=== PATIENT | male | born 1970 | race Two or more races ===

== ENCOUNTER 2018-01-19 09:24 | Emergency (ER) | payer MEDICAID ==
[2018-01-19 10:47] LABS: APPEARANCE CLEAR (CLEAR); BILIRUBIN NEGATIVE (NEGATIVE); COLOR YELLOW (YELLOW); GLUCOSE NEGATIVE (NEGATIVE); KETONE NEGATIVE (NEGATIVE); NITRITE NEGATIVE (NEGATIVE); PROTEIN NEGATIVE (NEGATIVE); SPECIFIC GRAVITY 1.015 (1.005-1.020); UROBILINOGEN NORMAL (NORMAL)
== END 2018-01-19 11:55 | disposition home or self-care (01) ==
LOC: D.ER 09:24
PROVIDERS: Family Medicine
DX: R35.0 Frequency of micturition (principal); I10 Essential (primary) hypertension

== ENCOUNTER 2018-02-07 14:35 | Emergency (ER) | payer MEDICAID | END 2018-02-07 16:27 | disposition home or self-care (01) | LOC: D.ER 14:35 | DX: J11.1 Influenza due to unidentified influenza virus with other respiratory manifestations (principal); R51 Headache; R53.83 Other fatigue; M79.1 Myalgia; J02.9 Acute pharyngitis, unspecified; F17.200 Nicotine dependence, unspecified, uncomplicated ==

== ENCOUNTER 2018-05-04 12:59 | Emergency (ER) | payer BC, MEDICAID ==
[~2018-05-04] VITALS: Ht 182.9 cm; Wt 131.8 kg
[2018-05-04 13:13] VITALS: Ht 182.9 cm; Wt 131.8 kg
[2018-05-04] MEDS ORDERED: LISINOPRIL10 MG PO (13:16)
[2018-05-04 13:42] LABS: APPEARANCE CLEAR (CLEAR); BILIRUBIN NEGATIVE (NEGATIVE); COLOR YELLOW (YELLOW); GLUCOSE NEGATIVE (NEGATIVE); KETONE NEGATIVE (NEGATIVE); NITRITE NEGATIVE (NEGATIVE); PROTEIN NEGATIVE (NEGATIVE); UROBILINOGEN NORMAL (NORMAL)
[2018-05-04 13:44] LABS: BACTERIA FEW /hpf (NONE SEEN); EPITHELIAL CELLS 0-5 /hpf (0-5); MUCUS <1+ /lpf (NONE SEEN); RED CELLS - URINE 0-5 /hpf (0-5); WHITE CELLS - URINE 0-5 /hpf (0-5)
[2018-05-04 13:58] LABS: BASOPHILS 0.2 % (0-2); EOSINOPHILS 3.1 % (0-7); HEMATOCRIT 45.1 % (42.0-54.0); HEMOGLOBIN 14.9 g/dL (13.5-17.5); IMMATURE GRANULOCYTES 0.2 % (0-5); LYMPHOCYTES 26.5 % (15-50); MCH 26.6 pg (26.0-34.0); MCV 80.4 fL (80.0-100.0); MEAN PLATELET VOLUME 10.8 fL (7.4-10.4); MONOCYTES 8.2 % (2-11); NEUTROPHILS 61.8 % (40-80); PLATELET COUNT 179 10x3/uL (130-400); RBC 5.61 10x6/uL (4.20-6.10); WBC 5.7 10x3/uL (4.8-10.8)
[2018-05-04 14:19] LABS: ALBUMIN 3.5 g/dL (3.4-5.0); ANION GAP 11.5 mmol/L (8-16); BILIRUBIN - TOTAL 0.33 mg/dL (0.2-1.3); CALCIUM 8.7 mg/dL (8.5-10.1); CARBON DIOXIDE 27.6 mmol/L (21.0-32.0); CREATININE - SERUM 1.3 mg/dL (0.6-1.3); POTASSIUM - SERUM 4.1 mmol/L (3.5-5.1); PROTEIN - SERUM 6.8 g/dL (6.4-8.2)
[2018-05-04] MEDS ORDERED: TORADOL10 MG PO (15:48)
[2018-05-04 17:01] VITALS: BP 131/87
== END 2018-05-04 17:00 | disposition home or self-care (01) ==
LOC: D.ER 12:59
PROVIDERS: Emergency Medicine
DX: M54.5 Low back pain (principal); I10 Essential (primary) hypertension

== ENCOUNTER 2018-05-30 15:48 | Emergency (ER) | payer BC, MEDICAID ==
[~2018-05-30] VITALS: Ht 182.9 cm; Wt 129.5 kg
[~2018-05-30 15:48] MED LIST: LISINOPRIL10 MG PO; TORADOL10 MG PO
[2018-05-30 16:45] VITALS: Ht 182.9 cm; Wt 129.5 kg
[2018-05-30] MEDS ORDERED: COZAAR25 MG PO (16:48)
[2018-05-30 17:21] LABS: BASOPHILS 0.1 % (0-2); EOSINOPHILS 2.3 % (0-7); HEMATOCRIT 44.6 % (42.0-54.0); HEMOGLOBIN 14.8 g/dL (13.5-17.5); IMMATURE GRANULOCYTES 0.1 % (0-5); LYMPHOCYTES 24.5 % (15-50); MCHC 33.2 g/dL (31.0-37.0); MCV 81.2 fL (80.0-100.0); MEAN PLATELET VOLUME 10.7 fL (7.4-10.4); MONOCYTES 9.1 % (2-11); NEUTROPHILS 63.9 % (40-80); RBC 5.49 10x6/uL (4.20-6.10); RDW 14.2 % (11.5-14.5); WBC 7.8 10x3/uL (4.8-10.8)
[2018-05-30 17:22] LABS: PLATELET COUNT 218 10x3/uL (130-400)
[2018-05-30 17:29] LABS: APTT 27.6 SECONDS (22.8-39.4); INR 0.95 (0.85-1.17); PROTIME 12.3 SECONDS (11.6-15.0)
[2018-05-30 17:36] LABS: ALBUMIN 3.8 g/dL (3.4-5.0); ALKALINE PHOSPHATASE 71 U/L (46-116); ALT (SGPT) 27 U/L (10-68); BILIRUBIN - TOTAL 0.27 mg/dL (0.2-1.3); CALC OSMOLALITY 284 mosm/kg (275-300); CARBON DIOXIDE 29.2 mmol/L (21.0-32.0); CHLORIDE - SERUM 105 mmol/L (98-107); CREATININE - SERUM 1.4 mg/dL (0.6-1.3); GLUCOSE 105 mg/dL (74-106); POTASSIUM - SERUM 3.7 mmol/L (3.5-5.1); PROTEIN - SERUM 7.2 g/dL (6.4-8.2); SODIUM 143 mmol/L (136-145); UREA NITROGEN 13 mg/dL (7-18); eGFR NON AFRICAN AMERICAN 58 mL/min (90-120)
[2018-05-30 17:47] LABS: CKMB 0.5 U/L (0.0-3.6); CREATINE KINASE 86 UL (21-232); PRO BNP 17 pg/mL (0-125); TROPONIN-I < 0.017 ng/mL (0.000-0.060)
[2018-05-30] MEDS ORDERED: COZAAR50 MG PO (20:21)
[2018-05-30] MEDS ORDERED: NITROSTAT0.3 MG SL (20:21)
[2018-05-30 20:26] VITALS: BP 128/74
[2018-06-05 07:36] VITALS: Ht 182.9 cm; Wt 129.5 kg
== END 2018-05-30 20:28 | disposition home or self-care (01) ==
LOC: D.ER 15:48
PROVIDERS: Emergency Medicine
DX: R07.9 Chest pain, unspecified (principal)

== ENCOUNTER 2018-06-02 09:20 | Outpatient (CLI) | payer MEDICAID ==
[~2018-06-02] VITALS: Ht 182.9 cm; Wt 136.4 kg
--- NOTE | ~2018-06-02 | HEMODYNAMI ---
PATIENT:AKIRA MANJARREZ MEDICAL RECORD: [id number] : 72 LOCATION:[facility] ADMISSION DATE: 06/02/18 Generatedon:06/02/201812:59 Patient name: AKIRA MANJARREZ Patient #: [id number] SSN: : Date of study: 06/02/2018 Page: Of Hemodynamic Procedure Report Patient Data Patient Demographics Procedure consent was obtained First Name: AKIRA Gender: Male Last Name: JOSSELINE : 1970 Middle Initial: AKI Age: 48 year(s) Patient #: [id number] Race: Other Additional ID: [id number] Contact details Address: [address] [place] [address] ROAD State: [place] City: [facility] Zip code: [address] Past Medical History Allergies Allergen Reaction Date Comments Reported Other allergy 06/02/2018 Lisinopril Admission Admission Data Admission Date: 06/02/2018 Admission Time: 9:20 Height (in.): 72 BSA: 2.57 (m2) Height (cm.): 182.88 BMI: 42.31 (kg/m2) Weight (lbs.): 312 Weight (kg.): 141.52 Procedure Procedure Types Cath Procedure Diagnostic Procedure [facility] w/Coronaries Procedure Description Procedure Date Procedure Date: 06/02/2018 Procedure Start Time: 12:50 Procedure End Time: 12:58 Procedure Staff Name Function Hosea Ng MD Performing Physician Marsha Beck RT Monitor Marco Antonio Abraham RN Nurse Breonna Beltre RT Scrub Procedure Data Cath Procedure Fluoroscopy Diagnostic fluoroscopy Total fluoroscopy Time: 1.6 time: 1.6 min min Diagnostic fluoroscopy Total fluoroscopy dose: 668 dose: 668 mGy mGy Contrast Material Contrast Material Type Amount (ml) Isovue 300 71 Entry Location Entry Primary Successful Side Size Upsize Upsize Entry Closure [place] ccessful Closure Location (Fr) 1 (Fr) 2 (Fr) Remarks Device Remarks Radial Right 6 Fr Mechanical artery Short Compression Estimated blood loss: 10 ml Diagnostic catheters Device Type Used For End Catheter Placement DIAGNOSTIC [place] 110cm 5 Procedure Fr catheter ([id number]) Procedure Complications No complications Procedure Medications Medication Administration Route Dosage 0.9% NaCl I.V. 100 ml/hr Oxygen etCO2 Nasal cannula 2 l/min Heparin Flush Bag added to field 2 bags (1000units/500ml NS) Lidocaine 2% added to field 20 Radial Cocktail added to field 1 syringe (Verapomil 2mg/Nitro 400mcg/Heparin 1500units) Versed I.V. 1 mg Fentanyl I.V. 50 mcg Radial Cocktail I.A. 1 syringe (Verapomil 2mg/Nitro 400mcg/Heparin 1500units) Versed I.V. 1 mg Fentanyl I.V. 50 mcg Hemodynamics Rest BSA: 2.57 (m2) O2 Consumption: Estimated: 317.58 (ml/min) O2 Consumption indexed : Estimated:123.57 (ml/min/m) Heart Rate: 79 (bpm) Snapshots Pre Cath Intra NCS Post Cath Vital Signs Time Heart Resp SPO2 etCO2 NIBP (mmHg) Rhythm Pain Sedation Rate (ipm) (%) (mmHg) Status Level (bpm) 12:34:21 78 15 98 38.1 121/83(110) NSR 0 (11) 10(A) , No pain 12:38:39 73 15 95 39.6 120/78(99) NSR 0 (11) 10(A) , No pain 12:42:55 75 13 96 29.2 123/76(103) NSR 0 (11) 10(A) , No pain 12:47:11 74 15 96 38.1 123/78(99) NSR 0 (11) 10(A) , No pain 12:51:25 74 15 97 40.4 117/73(95) NSR 0 (11) 10(A) , No pain 12:56:39 97 18 92 35.9 114/72(93) NSR 0 (11) 10(A) , No pain Medications Time Medication Route Dose Verified Delivered Reason Notes Effectiveness by by 12:31:22 0.9% NaCl I.V. 100 Marco Antonio Marco Antonio Per ml/hr Jarad Abraham physician RN RN 12:31:33 Oxygen etCO2 2 l/min Marco Antonio Marco Antonio Per Nasal Jarad Abraham physician cannula RN RN 12:31:52 Heparin Flush added 2 bags Marco Antonio Marco Antonio used for Bag to Jarad Abraham procedure (1000units/500ml field RN RN NS) 12:32:04 Lidocaine 2% added 20ml Marco Antonio Marco Antonio for local to vial Lorham Abraham anesthetic field RHOADES RN 12:32:16 Radial Cocktail added 1 Marco Antonio Marco Antonio used for (Verapomil to syringe Jarad Abraham procedure 2mg/Nitro field RHOADES RN 400mcg/Heparin 1500units) 12:46:29 Versed I.V. 1 mg Marco Antonio Marco Antonio for sedation Jarad Abraham RN RN 12:46:42 Fentanyl I.V. 50 mcg Marco Antonio Marco Antonio for sedation Jarad Abraham RN RN 12:52:05 Radial Cocktail I.A. 1 Marco Antonio Hosea for (Verapomil syringe Jarad Ng MD vasodilation 2mg/Nitro RN 400mcg/Heparin 1500units) 12:52:42 Versed I.V. 1 mg Marco Antonio Marco Antonio for sedation Jarad Abraham RN, RN 12:52:47 Fentanyl I.V. 50 mcg Marco Antonio Marco Antonio for sedation Jarad Abraham RN, RN Procedure Log Time Note 12:13:20 Patient Height : 72 inches 12:13:25 Patient Weight : 312 lbs 12:14:06 Diagnostic Cath status Elective 12:14:08 Marsha BACK(R) sent for patient. Start room use. 12:14:09 Time tracking: Regular hours (M-F 7:00 - 5:00) 12:14:14 Plan of Care:Hemodynamics will remain stable., Cardiac rhythm will remain stable., Comfort level will be maintained., Respiratory function will remain adequate., Patient/ family verbilizes understanding of procedure., Procedure tolerated without complication., Recovers from procedure without complications.. 12:20:07 Patient received from Pre/Post Procedure Room to CCL 2 Alert and oriented. Tansferred to table in Supine position. 12:20:08 Warm blankets applied, and chato hugger turned on for patient comfort. 12:20:08 Correct patient and procedure confirmed by team. 12:20:09 Signed procedure consent form obtained from patient. 12:20:10 ECG and BP/O2 sat monitors applied to patient. 12:31:22 0.9% NaCl 100 ml/hr I.V. was administered by Marco Antonio Lorigan RN; Per physician; 12:31:33 Oxygen 2 l/min etCO2 Nasal cannula was administered by Marco Antonio Abraham RN; Per physician; 12:31:52 Heparin Flush Bag (1000units/500ml NS) 2 bags added to field was administered by Marco Antonio Abraham RN; used for procedure; 12:32:04 Lidocaine 2% 20ml vial added to field was administered by Marco Antonio Abraham RN; for local anesthetic; 12:32:16 Radial Cocktail (Verapomil 2mg/Nitro 400mcg/Heparin 1500units) 1 syringe added to field was administered by Marco Antonio Abraham RN; used for procedure; 12:33:12 Vital chart was started 12:33:17 Baseline sample Acquired. 12:33:22 Rhythm: sinus rhythm 12:33:25 Full Disclosure recording started 12:34:20 H&P Date Dictated: 06/01/2018 Within 30 days and on chart., H&P Addendum completed by physician on day of procedure. (MUST COMPLETE FOR ALL OUTPATIENTS). 12:34:21 Pre-procedure instructions explained to patient. 12:34:23 Family in waiting room. 12:34:25 Patient NPO since Midnight. 12:34:37 Patient allergic to Other allergyLisinopril 12:34:40 Is the patient allergic to Iodine/contrast media? No. 12:34:41 Was the patient premedicated? Yes 12:34:42 Is patient on blood thinner?No 12:34:43 Patient diabetic? No. 12:34:47 Snore? Yes 12:34:49 Sleep apnea? No 12:34:50 Deviated septum? No 12:34:56 Dentures? No ? 12:35:00 Patient pain scale 0/10 ?. 12:35:07 IV patent on arrival in left forearm with 0.9% NaCl at O. 12:35:14 Lab results completed and on chart. 12:35:18 Right Radial & Right Groin area was prepped with chlora-prep and draped in sterile fashion 12:35:19 Alarms reviewed by R. N. 12:35:19 Sharps counted by scrub and verified by R.N. 12:35:20 Physician paged 12:38:57 Use device set Radial Dx or PCI 12:38:58 ACIST Syringe (92685) opened to sterile field. 12:38:59 Medline Cath Pack ([id number]) opened to sterile field. 12:39:00 Bag Decanter (2001S) opened to sterile field. 12:39:01 DIAGNOSTIC WIRE .035 260cm J wire ([id number]) opened to sterile field. 12:39:02 ACIST Hand Control (30591) opened to sterile field. 12:39:02 ACIST Manifold (70586) opened to sterile field. 12:39:03 Tegaderm 4 x 4 (1626W) opened to sterile field. 12:39:04 MBrace Wrist Support ([id number]) opened to sterile field. 12:39:07 TR BAND Large ([id number]) opened to sterile field. 12:39:13 SHEATH 6Fr Prelude Radial ([id number]) opened to sterile field. 12:39:17 Zero performed for pressure channel P1 12:45:53 Physician arrived 12:45:54 --------ALL STOP TIME OUT------ 12:45:55 Final Timeout: patient, procedure, and site verified with staff and physician. All members of the team are in agreement. 12:45:58 Right Radial & Right Groin site verified by team. 12:46:01 Physical assessment completed. ASA score P 2 - A patient with mild systemic disease as per Hosea gN MD. 12:46:05 Sedation plan: IV Moderate Sedation Medication:Versed, Fentanyl 12:46:29 Versed 1 mg I.V. was administered by Marco Antonio Abraham RN; for sedation; 12:46:42 Fentanyl 50 mcg I.V. was administered by Marco Antonio Abraham RN; for sedation; 12:50:13 Procedure started. 12:50:25 Local anesthetic to right radial artery with Lidocaine 2% by Hosea Ng MD.INITIAL ACCESS ONLY 12:51:02 A 6 Fr Short sheath was inserted into the Right Radial artery 12:51:07 J wire advanced. 12:51:24 A DIAGNOSTIC [place] 110cm 5 Fr catheter ([id number]) was advanced over the wire and used for Procedure. 12:52:05 Radial Cocktail (Verapomil 2mg/Nitro 400mcg/Heparin 1500units) 1 syringe I.A. was administered by Hosea Ng MD; for vasodilation; 12:52:16 LV angiography performed. 12:52:42 Versed 1 mg I.V. was administered by Marco Antonio Abraham RN; for sedation; 12:52:47 Fentanyl 50 mcg I.V. was administered by Marco Antonio Abraham RN; for sedation; 12:53:08 EF : 60 % 12:53:37 RCA angiography performed. 12:55:32 Catheter removed. 12:56:21 Sheath removed intact; hemostasis achieved with Mechanical Compression to the Right Radial artery. 12:56:25 Procedure ended.(Physican Out) 12:56:36 Fluoroscopy time 01.60 minutes. 12:56:41 Fluoroscopy dose: 668 mGy 12:56:41 Flurop Dose total: 668 12:56:45 Contrast amount:Isovue 300 71ml. 12:56:47 Sharps counted by scrub and verified by R.N. 12:56:54 TR band inflated with 12cc of air. 12:56:55 Insertion/operative site no bleeding no hematoma. 12:57:03 Post Procedure Pulses reassessed and unchanged 12:57:07 Post-procedure physical assessment completed. ASA score P 2 - A patient with mild systemic disease as per Hosea Ng MD. 12:57:19 Post procedure rhythm: sinus rhythm 12:57:24 Estimated blood loss: 10 ml 12:57:30 Post procedure instruction explained to patient.Patient verbalizes understanding. 12:57:48 Procedure and supply charges have been captured, reviewed, submitted and are correct. 12:58:22 Procedure Complication : No complications 12:58:25 Vital chart was stopped 12:58:26 See physician's report for complete and final results. 12:58:30 Procedure ended. 12:58:30 Full Disclosure recording stopped 12:58:33 End room use (Document Last) Device Usage Item Name Manufacture Quantity Catalog Number Hospital Part Current M inimal Lot# / Charge Number Stock Stock Serial# Code ACIST Syringe Acist 1 98539 285195 840770 830950 2 0 (46877) [employer] Medline Cath Cardinal 1 [id number] 280762 01175 480848 5 [employer] ([id number]) Bag Decanter Microtek 1 549175 55435 585756 5 () [employer] DIAGNOSTIC WIRE [place] 1 188898 751290 914560 045009 3 0 .035 260cm J wire (783973) ACIST Hand Acist 1 38921 686660 623473 342658 5 Control (26199) [employer] Inc ACIST Manifold Acist 1 69213 744475 942693 663958 5 (62574) [employer] Inc Tegaderm 4 x 4 3M 1 1626W 867431 012055 818464 5 (1626W) MBrace Wrist Advanced 1 140-0250-00 177807 94214 540078 5 Support Vascular ([id number]) Dynamics TR BAND Large Terumo 1 [id number] 900814 237679 640319 4 0 ([id number]) SHEATH 6Fr Merit 1 [id number] 329002 527233 031562 5 Prelude Radial Medical ([id number]) DIAGNOSTIC Terumo 1 94-7323 555361 185271 857810 5 [place] 110cm 5 Fr catheter (668729) Signature Audit [place] Stage Time Signature Unsigned Intra-Procedure 06/02/2018 Marsha Beck 12:59:30 PM RT(R) Signatures Monitor : Marsha Beck Signature : RT Date : Time : [place] [id number] [place] [address]
--- NOTE | ~2018-06-02 | OP ---
PATIENT NAME: AKIRA MANJARREZ MEDICAL RECORD: [id number] :72 LOCATION:D.CAT ADMISSION DATE: SURGEON: SAMANTHA JOSEPH MD DATE OF OPERATION: 06/02/2018 PROCEDURES: 1. Left heart catheterization. 2. Selective coronary angiography. 3. Left ventriculogram. INDICATION: Chest pain compatible with angina. DESCRIPTION OF PROCEDURE: After informed consent was obtained and after a detailed description of the risks, benefits as well as alternative therapies, the patient elected to proceed with angiogram and heart catheterization. The right radial area was prepped and draped in normal sterile fashion. Right radial artery was cannulated via modified Seldinger technique with placement of 5-Luxembourger sheath. All catheters exchanged through this sheath. FINDINGS: Left ventriculogram was performed in standard 30-degree ROGERS view, reveals good cardiac wall motion throughout all segments. Overall ejection fraction estimated at 55% to 60%. SELECTIVE CORONARY ANGIOGRAPHY: Left main, left anterior descending, left circumflex, right coronary are all smooth-walled vessels with no angiographic evidence of coronary artery disease. OVERALL IMPRESSION: 1. No angiographic evidence of coronary artery disease. 2. Normal left heart pressures. 3. Normal left ventricular systolic function. Chest pain is noncardiac in etiology. No further cardiac workup needs to be ascertained. 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
[~2018-06-02 09:20] MED LIST changes: +COZAAR25 MG PO; +COZAAR50 MG PO; +NITROSTAT0.3 MG SL
[2018-06-02] MEDS ORDERED: VITAMIN D5000 UNIT PO (09:41)
[2018-06-02 09:43] VITALS: BP 123/73; Ht 182.9 cm; Wt 136.4 kg
[2018-06-02 10:02] LABS: BASOPHILS 0.2 % (0-2); EOSINOPHILS 2.7 % (0-7); HEMATOCRIT 46.1 % (42.0-54.0); HEMOGLOBIN 15.4 g/dL (13.5-17.5); IMMATURE GRANULOCYTES 0.2 % (0-5); LYMPHOCYTES 26.4 % (15-50); MCH 26.7 pg (26.0-34.0); MCHC 33.4 g/dL (31.0-37.0); MCV 79.9 fL (80.0-100.0); MEAN PLATELET VOLUME 10.2 fL (7.4-10.4); MONOCYTES 7.4 % (2-11); NEUTROPHILS 63.1 % (40-80); PLATELET COUNT 206 10x3/uL (130-400); RBC 5.77 10x6/uL (4.20-6.10); RDW 14.2 % (11.5-14.5); WBC 6.3 10x3/uL (4.8-10.8)
[2018-06-02 10:18] LABS: CALC OSMOLALITY 280 mosm/kg (275-300); CALCIUM 8.9 mg/dL (8.5-10.1); CARBON DIOXIDE 27.6 mmol/L (21.0-32.0); CHLORIDE - SERUM 105 mmol/L (98-107); CREATININE - SERUM 1.1 mg/dL (0.6-1.3); GLUCOSE 113 mg/dL (74-106); POTASSIUM - SERUM 3.9 mmol/L (3.5-5.1); SODIUM 141 mmol/L (136-145); UREA NITROGEN 11 mg/dL (7-18); eGFR NON AFRICAN AMERICAN 76 mL/min (90-120)
== END 2018-06-02 15:30 ==
LOC: D.CATH 09:20
PROVIDERS: Internal Medicine Interventional Cardiology
DX: R07.89 Other chest pain (principal); I10 Essential (primary) hypertension

== ENCOUNTER 2018-06-05 07:30 | Emergency (ER) | payer MEDICAID ==
[~2018-06-05] VITALS: Ht 182.9 cm; Wt 131.8 kg
[~2018-06-05 07:30] MED LIST changes: +VITAMIN D5000 UNIT PO
[2018-06-05 07:36] VITALS: Ht 182.9 cm; Wt 131.8 kg
[2018-06-05] MEDS ORDERED: NORCO 7.5/325 T1 TA1 PO (08:28)
[2018-06-05 08:45] VITALS: BP 131/87
== END 2018-06-05 08:46 | disposition home or self-care (01) ==
LOC: D.ER 07:30
DX: S56.312A Strain of extensor or abductor muscles, fascia and tendons of left thumb at forearm level, initial encounter (principal); X58.XXXA Exposure to other specified factors, initial encounter; Y93.89 Activity, other specified; Y92.019 Unspecified place in single-family (private) house as the place of occurrence of the external cause; I10 Essential (primary) hypertension